=== PATIENT | female | born 1975 | race Caucasian/White ===

== ENCOUNTER 2020-02-19 13:12 | Emergency (ER) | payer OTHER, BC ==
[2020-02-19 15:29] LABS: HEMATOCRIT 41.7 % (37.0-47.0); HEMOGLOBIN 13.5 g/dl (12.0-16.0); IMMATURE GRANULOCYTES 0.3 % (0.0-5.0); MEAN CELL VOLUME 87.1 fL CALC (80.0-100.0); MEAN CORPUSCULAR HGB 28.2 pG CALC (26.0-32.0); MEAN CORPUSCULAR HGB CONC 32.4 g/dL CAL (32.0-36.0); NEUT# 7.82 thou/uL (2.00-7.15); RED BLOOD COUNT 4.79 mill/uL (4.20-5.60); RED CELL DISTRI WIDTH 14.4 % (11.5-15.5)
[2020-02-19 15:41] LABS: ALBUMIN 4.4 g/dL (3.2-5.0); ALKALINE PHOSPHATASE 93 u/l (38-126); AMYLASE 63 u/l (30-110); ANION GAP 10 (6-22 (CALC)); BILIRUBIN, TOTAL 0.4 mg/dL (0.0-1.4); BUN 17 mg/dL (7-17); BUN/CREATININE RATIO 15 (12-20 (CALC)); CARBON DIOXIDE 24 mmol/l (22-30); CHLORIDE 107 mmol/l (95-108); CREATININE 1.1 mg/dL (0.5-1.0); ETHYL ALCOHOL 0 mg/dl (0-30); GFR 54 ML/MIN (>=60 (CALC)); GFR FOR AFR.AMER. > 60 ML/MIN (>=60 (CALC)); LIPASE 66 u/l (23-300); POTASSIUM 3.8 mmol/l (3.5-5.1); SGOT/AST 37 u/l (14-36); SODIUM 138 mmol/l (137-146); TOTAL PROTEIN 7.8 g/dL (6.3-8.2)
[2020-02-19] MEDS ORDERED: IBUPROFEN600 MG PO (17:38)
[2020-02-19 17:48] VITALS: BP 149/63
== END 2020-02-19 17:55 | disposition home or self-care (01) | DRG 605 ==
LOC: EDSEX 13:12 → ED 13:12
DX: S20.211A Contusion of right front wall of thorax, initial encounter (principal); S30.1XXA Contusion of abdominal wall, initial encounter; V43.52XA Car driver injured in collision with other type car in traffic accident, initial encounter
CPT/HCPCS: Q9967

== ENCOUNTER 2021-02-16 17:15 | Emergency (ER) | payer BC ==
[~2021-02-16] VITALS: Ht 170.2 cm; Wt 138.0 kg
[~2021-02-16 17:15] MED LIST: IBUPROFEN600 MG PO
[2021-02-16 19:10] LABS: HEMATOCRIT 41.3 % (37.0-47.0); HEMOGLOBIN 13.3 g/dl (12.0-16.0); IMMATURE GRANULOCYTES 0.2 % (0.0-5.0); MEAN CELL VOLUME 89.2 fL CALC (80.0-100.0); MEAN CORPUSCULAR HGB 28.7 pG CALC (26.0-32.0); MEAN CORPUSCULAR HGB CONC 32.2 g/dL CAL (32.0-36.0); NEUT# 2.75 thou/uL (2.00-7.15); RED BLOOD COUNT 4.63 mill/uL (4.20-5.60); RED CELL DISTRI WIDTH 13.4 % (11.5-15.5)
[2021-02-16 19:25] LABS: ALKALINE PHOSPHATASE 80 u/l (38-126); BILIRUBIN, TOTAL 0.4 mg/dL (0.0-1.4); BUN 13 mg/dL (7-17); BUN/CREATININE RATIO 13 (12-20 (CALC)); CHLORIDE 104 mmol/l (95-108); GFR 60 ML/MIN (>=60 (CALC)); GFR FOR AFR.AMER. > 60 ML/MIN (>=60 (CALC)); POTASSIUM 4.3 mmol/l (3.5-5.1); SGOT/AST 33 u/l (14-36); SODIUM 136 mmol/l (137-146); TOTAL PROTEIN 7.6 g/dL (6.3-8.2)
[2021-02-16 19:31] LABS: ANION GAP 7 (6-22 (CALC)); CARBON DIOXIDE 29 mmol/l (22-30)
[2021-02-16] MEDS ORDERED: PROZAC20 MG PO (19:46)
[2021-02-16] MEDS ORDERED: XANAX1 MG PO (19:47)
[2021-02-16] MEDS ORDERED: ROBITUSSIN AC10 ML PO (20:31)
[2021-02-16] MEDS ORDERED: PREDNISONE50 MG PO (20:31)
[2021-02-16 20:42] VITALS: BP 150/81
== END 2021-02-16 20:55 | disposition home or self-care (01) | DRG 866 ==
LOC: ED 17:15
PROVIDERS: Emergency Medicine
DX: B34.9 Viral infection, unspecified (principal); B02.9 Zoster without complications; Z87.891 Personal history of nicotine dependence; Z20.822 Contact with and (suspected) exposure to COVID-19

== ENCOUNTER 2022-05-25 11:45 | Emergency (ER) | payer BC ==
[~2022-05-25] VITALS: Ht 170.2 cm; Wt 121.8 kg
[~2022-05-25 11:45] MED LIST changes: +PREDNISONE50 MG PO; +PROZAC20 MG PO; +ROBITUSSIN AC10 ML PO; +XANAX1 MG PO
[2022-05-25 12:05] VITALS: BP 154/96
[2022-05-25 12:31] VITALS: BP 160/96
[2022-05-25 12:56] VITALS: BP 141/82
[2022-05-25 13:01] VITALS: BP 140/90
[2022-05-25 13:31] VITALS: BP 138/84
[2022-05-25] MEDS ORDERED: ZPAK PO (14:01)
[2022-05-25] MEDS ORDERED: VENTOLIN HFA108 MCG IN (14:01)
[2022-05-25] MEDS ORDERED: PREDNISONE20 MG PO (14:01)
[2022-05-25 14:10] VITALS: BP 138/84
== END 2022-05-25 14:17 | disposition home or self-care (01) | DRG 179 ==
LOC: ED 11:45
DX: U07.1 COVID-19 (principal); R50.9 Fever, unspecified; R05.9 Cough, unspecified; R06.2 Wheezing; J44.9 Chronic obstructive pulmonary disease, unspecified

== ENCOUNTER 2022-06-05 11:41 | Emergency (ER) | payer OTHER, BC ==
[2022-06-05] VITALS (14 sets, daily range): BP systolic 86–127; BP diastolic 38–81
[~2022-06-05] VITALS: Ht 170.2 cm; Wt 102.0 kg
[~2022-06-05 11:41] MED LIST changes: +PREDNISONE20 MG PO; +VENTOLIN HFA108 MCG IN; +ZPAK PO
[2022-06-05] MEDS ORDERED: HYDROCO/APAP1 TA9 PO (19:54)
[2022-06-06] MEDS ORDERED: HYDROCO/APAP1 TA9 PO (09:34)
== END 2022-06-05 17:14 | disposition home or self-care (01) | DRG 563 ==
LOC: ED 11:41
PROC: 0QSFXZZ Reposition Left Patella, External Approach (ICD-10-PCS; principal; 2022-06-05)
DX: S83.005A Unspecified dislocation of left patella, initial encounter (principal); W01.0XXA Fall on same level from slipping, tripping and stumbling without subsequent striking against object, initial encounter; Y92.89 Other specified places as the place of occurrence of the external cause; Y99.0 Civilian activity done for income or pay
CPT/HCPCS: L1830